=== PATIENT | male | born 1955 | race Caucasian/White ===

== ENCOUNTER 2019-01-07 19:08 | Emergency (ER) | payer OTHER ==
[2019-01-07 19:29] VITALS: TEMP 98.7
[2019-01-07] MEDS ORDERED: Sodium Chloride 0.9% 1,000 ML IV ONE (19:42)
[2019-01-07] MEDS ORDERED: Sodium Chloride 0.9% 1,000 ML ONE (19:54)
[2019-01-07 20:10] LABS: BASO % 0.3 % (0.0-2.0); EOS % 0.4 % (0.0-4.0); HEMOGLOBIN 15.7 g/dL (12.0-18.0); LYMPH # 1.1 K/uL (1.0-4.3); LYMPH % 16.1 % (20.0-40.0); MEAN CELL VOLUME 91.9 fL (80.0-94.0); MEAN CORPUSCULAR HEMOGLOBIN 30.2 pg (27.0-31.0); MEAN CORPUSCULAR HGB CONC 32.9 g/dL (33.0-37.0); MONO # 0.5 K/uL (0.0-0.8); MONO % 6.4 % (0.0-10.0); NEUT # 5.4 K/uL (1.8-7.0); NEUT % 76.8 % (50.0-75.0); RBC 5.19 Mil/uL (4.40-5.90); RED CELL DISTRIBUTION WIDTH 13.4 % (11.5-14.5); WHITE BLOOD COUNT 7.1 K/uL (4.8-10.8)
[2019-01-07] MEDS ORDERED: Iohexol 300 100 ML IJ ONE (20:19)
[2019-01-07 20:22] VITALS: O2SAT 96
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
[2019-01-07 20:31] LABS: ALB/GLOB RATIO 1.4 (1.0-2.1); ALBUMIN 4.9 g/dL (3.5-5.0); ALT/SGPT 13 U/L (21-72); AST/SGOT 35 U/L (17-59); BLOOD UREA NITROGEN 18 mg/dL (9-20); CALCIUM 9.3 mg/dl (8.6-10.4); GFR NON-AFRICAN AMERICAN > 60
[2019-01-07 20:35] LABS: B-TYPE NATRIURETIC PEPTIDE 499 pg/mL (0-900)
[2019-01-07 20:43] LABS: INR 1.1; PROTHROMBIN TIME 12.5 SECONDS (9.7-12.2)
[2019-01-07 22:19] VITALS: BP 160/90; PULSE 70; RESP 14
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
--- NOTE | 2019-01-08 15:23 | RAD ---
Date of service: 01/07/2019 HISTORY: SOB COMPARISON: No prior study available comparison FINDINGS: LUNGS: Minor bibasilar atelectasis PLEURA: No significant pleural effusion identified, no pneumothorax apparent. CARDIOVASCULAR: No aortic atherosclerotic calcification present. Normal cardiac size. Sternotomy wires and CABG clips. No pulmonary vascular congestion. OSSEOUS STRUCTURES: No significant abnormalities. VISUALIZED UPPER ABDOMEN: Normal. OTHER FINDINGS: None. IMPRESSION: Minor bibasilar atelectasis.
--- NOTE | 2019-01-10 12:45 | CARD ---
APPROVED REPORT Date of service: 01/07/2019 EKG Measurement Heart [id number] <Conclusion> Sinus rhythm with frequent premature ventricular complexes Otherwise normal ECG
== END 2019-01-07 22:20 | disposition home or self-care (01) ==
LOC: C.ER 19:08
DX: S20.219A Contusion of unspecified front wall of thorax, initial encounter (principal); V49.9XXA Car occupant (driver) (passenger) injured in unspecified traffic accident, initial encounter; R33.9 Retention of urine, unspecified
CPT/HCPCS: 71045; 71260; 80053; 83880; 84484; 85025; 85610; 85730; 96361; 96374; 99285; J1885; J7030; Q9967